=== PATIENT | male | born 1965 | race Caucasian/White ===

== ENCOUNTER 2017-10-18 00:07 | Emergency (ER) | payer OTHER ==
[~2017-10-18] VITALS: Ht 180.3 cm; Wt 95.5 kg
[2017-10-18 00:11] VITALS: TEMP 97.4
[2017-10-18] MEDS ORDERED: NORCO 325 MG-51 TAB PO (02:05)
[2017-10-18 02:13] VITALS: BP 108/67; PULSE 90
== END 2017-10-18 02:16 | disposition home or self-care (01) ==
LOC: COL.ER 00:07
DX: S82.831A Other fracture of upper and lower end of right fibula, initial encounter for closed fracture (principal); Z23 Encounter for immunization; W10.1XXA Fall (on)(from) sidewalk curb, initial encounter; Y92.410 Unspecified street and highway as the place of occurrence of the external cause
CPT/HCPCS: J3010